=== PATIENT | male | born 1970 | race Two or more races ===

== ENCOUNTER 2020-04-26 12:54 | Emergency (ER) | payer MEDICARE, MEDICAID ==
[~2020-04-26] VITALS: Ht 170.2 cm; Wt 111.5 kg
--- NOTE | 2020-04-26 13:23 | NUR ---
REFUSES EKG IN TRIAGE. HR 130. STATES "IM ONLY HERE FOR A REFILL, IT DOESNT MATTER"
--- NOTE | 2020-04-26 13:24 | NUR ---
pt upset b/p machine wouldnt take and left triage for home
== END 2020-04-26 13:26 | disposition left against medical advice (07) ==
LOC: ED 13:20
DX: R56.9 Unspecified convulsions (principal); Z53.21 Procedure and treatment not carried out due to patient leaving prior to being seen by health care provider